=== PATIENT | male | born 1975 | race Caucasian/White ===

== ENCOUNTER 2020-01-14 17:51 | Emergency (ER) | payer SELFPAY ==
[~2020-01-14] VITALS: Ht 172.7 cm; Wt 108.9 kg
[2020-01-14 18:03] VITALS: BP 144/95
--- NOTE | 2020-01-14 18:15 | NUR ---
frequently redirection required for patient to maintain in his room---brought few cups of water md spoke with p[t----pt ambulated out of the ER with steady gait.
--- NOTE | 2020-01-14 18:16 | NUR ---
and charge notified
== END 2020-01-14 18:15 | disposition left against medical advice (07) ==
LOC: MED 17:51
DX: F15.10 Other stimulant abuse, uncomplicated (principal); R44.2 Other hallucinations
CPT/HCPCS: 99283

== ENCOUNTER 2022-07-13 20:35 | Inpatient (IN) | payer MEDICAID ==
[~2022-07-13] VITALS: Ht 170.2 cm; Wt 71.7 kg
[2022-07-13 21:18] VITALS: BP 126/75
--- NOTE | 2022-07-13 21:25 | NUR ---
Provided, blankets, 2 sanwiches and orange juice as request.
--- NOTE | 2022-07-14 01:00 | NUR ---
Dr. Farias examining patient.
--- NOTE | 2022-07-14 01:51 | NUR ---
PT TAKEN TO BED 5
--- NOTE | 2022-07-14 01:58 | NUR ---
PT IN ROOM 5 IN GOWN AND ALL PERSONAL BELONGINGS BAGGED AND TAGGED
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
[2022-07-14 03:10] LABS: BARBITURATE, URINE NEGATIVE ng/ml (NEG <=200); BENZODIAZEPINE, URINE NEGATIVE ng/mL (NEG <=200); CANNABINOID, URINE POSITIVE ng/mL (NEG <=50); COCAINE, URINE NEGATIVE ng/mL (NEG <=300); OPIATE, URINE NEGATIVE ng/mL (NEG <=2000); PHENCYCLIDINE SCREEN,URINE NEGATIVE ng/mL (NEG <=25)
--- NOTE | 2022-07-14 04:10 | NUR ---
[facility] BLISS CONTACTED FOR [address] AVERY
--- NOTE | 2022-07-14 04:18 | NUR ---
PT continues to take off BP cuff and pulse ox cables and refused blood pressure and SpO2 monitoring.
--- NOTE | 2022-07-14 04:21 | NUR ---
[place] [employer] AT BEDSIDE
--- NOTE | 2022-07-14 04:28 | NUR ---
FLORENCIA BLISS HERE PT IS ON A 5150 HOLD. PT WAS INFORMED ON LABS AND NO OPTION OF REFUSAL. Q15 SI CHECKS HAVE STARTED. ALL ITEMS FROM ROOM REMOVED FOR SAFETY. PT IS IN VIEW. SIDE RAILS UP X2. BED AT LOWEST LEVEL
[2022-07-14] MEDS ORDERED: LORazepam 1 MG TAB PO ONE (04:45)
--- NOTE | 2022-07-14 05:02 | NUR ---
COVID AND NOVEL SWABS COLLECTED AND SENT TO LAB
--- NOTE | 2022-07-14 06:11 | NUR ---
PENDING TO MED CLEAR PATIENT FOR TELEPSYCH.
--- NOTE | 2022-07-14 07:17 | NUR ---
Report received from ANNEMARIE Brandon for transfer of care.
--- NOTE | 2022-07-14 08:12 | NUR ---
Lab at bedside, blood work drawn.
--- NOTE | 2022-07-14 08:12 | NUR ---
Patient was offered his breakfast tray.
[2022-07-14 08:32] LABS: BASOPHILS % (AUTO) 0.9 % (0.0-2.0); EOSINOPHILS # (AUTO) 0.1 K/uL (0-0.4); EOSINOPHILS % (AUTO) 2.6 % (0.0-4.0); HEMATOCRIT 43.4 % (36-52); HEMOGLOBIN 14.5 g/dL (12.0-18.0); LYMPHOCYTES # (AUTO) 1.3 K/uL (2.0-11.5); LYMPHOCYTES % (AUTO) 27.9 % (20.5-51.1); MEAN CORPUSCULAR HEMOGLOBIN 32 pg (27-31); MEAN CORPUSCULAR HGB CONC 34 g/dL (33-37); MEAN CORPUSCULAR VOLUME 96.3 fL (80-94); MONOCYTES # (AUTO) 0.5 K/uL (0.8-1.0); MONOCYTES % (AUTO) 10.3 % (1.7-9.3); NEUTROPHILS # (AUTO) 2.7 K/uL (1.8-7.7); NEUTROPHILS % (AUTO) 58.3 % (42.2-75.2); PLATELET COUNT (AUTO) 264 K/uL (140-450); RED CELL DISTRIBUTION WIDTH 12.5 % (11.6-13.7); WHITE BLOOD COUNT (AUTO) 4.6 K/uL (4.8-10.8)
[2022-07-14 08:34] LABS: ANION GAP 0.1 (8-16); CARBON DIOXIDE 28.8 mmol/L (21-32); CREATININE 0.8 mg/dL (0.6-1.3); POTASSIUM 3.9 mmol/L (3.5-5.1)
--- NOTE | 2022-07-14 08:51 | NUR ---
Dr. Andino evaluating patient at bedside.
[2022-07-14] MEDS ORDERED: NACL 0.9% 1,000 ML IV ONE (08:55)
--- NOTE | 2022-07-14 09:20 | NUR ---
Patient refused IV.
--- NOTE | 2022-07-14 10:19 | NUR ---
Patient refused IV. Dr. Andino made aware.
--- NOTE | 2022-07-14 10:35 | NUR ---
Patient was offered crackers and juice.
--- NOTE | 2022-07-14 11:23 | NUR ---
Spoke to Dr. Navarro, will call back in 1 hour to evaluate patient.
--- NOTE | 2022-07-14 12:02 | NUR ---
Patient was offered his lunch tray. Patient is sitting up on bed, eating lunch.
--- NOTE | 2022-07-14 12:28 | NUR ---
Dr. Navarro, psychiatrist, evaluating patient at bedside.
--- NOTE | 2022-07-14 14:31 | NUR ---
PAGED DR DUMONT TO NOTIFY HER THAT PT IS BEING ADMITTED TO THE FLOOR WITHOUT AN IV. DR TABARES.
[2022-07-14] MEDS ORDERED: LORazepam 2 MG/ML VIAL IVP PRN (14:35)
[2022-07-14] MEDS ORDERED: POTASSIUM CHLORIDE 10 MEQ TABER PO PRN (14:35)
[2022-07-14] MEDS ORDERED: ONDANSETRON 4 MG/2 ML VIAL IVP PRN (14:35)
[2022-07-14] MEDS ORDERED: DOCUSATE SODIUM 100 MG GELCAP PO PRN (14:35)
[2022-07-14] MEDS ORDERED: ACETAMINOPHEN 325 MG TAB PO PRN (14:35)
[2022-07-14] MEDS ORDERED: MORPHINE SULFATE 2 MG/ML SYR IVP PRN (14:35)
[2022-07-14] MEDS ORDERED: ZOLPIDEM 10 MG TAB PO PRN (14:35)
[2022-07-14] MEDS ORDERED: MAG SULF 2000 MG/WATER PREMIX 50 ML IV PRN (14:35)
--- NOTE | 2022-07-14 14:39 | NUR ---
Patient will be admitted to care of Dr. Sampson. Admited to Telemetry. Will go to room 109B. Belongings list completed. Report to DIONICIO Holcomb.
--- NOTE | 2022-07-14 14:40 | NUR ---
The patient's care was reviewed and supervised by Monique Redd RN.
[2022-07-14 15:42] VITALS: BP 115/71
--- NOTE | 2022-07-14 19:20 | NUR ---
RECEIVED PT FROM AM NURSE FOR CONTINUITY OF CARE.PT IS STABLE
[2022-07-14 20:00] VITALS: BP 119/68
[2022-07-14] MEDS: OLANZapine 5 MG TAB PO SCH (21:11)
--- NOTE | 2022-07-15 | NUR ---
PATIENT ASLEEP,NO DISTRESS NOTED
--- NOTE | 2022-07-15 04:00 | NUR ---
PATIENT STILL ASLEEP, NO COMPLAIN OF PAIN, NO AGITATION NOTED
--- NOTE | 2022-07-15 06:00 | NUR ---
PT REFUSED HEART MONITOR ON, SAID HE WANTS IT LATER
--- NOTE | 2022-07-15 06:30 | NUR ---
PATIENT REFUSED BLOOD DRAW
--- NOTE | 2022-07-15 07:20 | NUR ---
EBDORSED PT TO AM NURSE IN STABLE CONDITION
[2022-07-15] MEDS: OLANZapine 5 MG TAB PO SCH ×2 (09:00→20:53)
--- NOTE | 2022-07-15 09:00 | NUR ---
patient refusing vital signs, blood draws, and tele monitoring. MD aware. pt. had a shower tolerated well. pt. still verbalizing suicidal thoughts. 1:1 sitter at bedside at all times. safety measures provided. will continue to monitor patient.
--- NOTE | 2022-07-15 10:15 | NUR ---
PATIENT HAS BEEN SCREENED AND CATEGORIZED LOW NUTRITION RISK. PATIENT WILL BE SEEN WITHIN 7 DAYS OF ADMISSION. 07/21/[address] REVIEWED BY CASH GUSTA[address]ON RD
--- NOTE | 2022-07-15 11:00 | NUR ---
DISCHARGE PLANNING SW ATTEMPTED TO MET WITH PATIENT AT BEDSIDE TO DISCUSS AND GATHER PATIENT'S COLLATERAL INFORMATION. PATIENT WAS ASLEEP, HOWEVER PATIENT ATTEMPTED TO WAKE HIM UP TO COMPLETE ASSESSMENT. PATIENT WAS NOT COOPERATIVE AND UNWILLING TO PROVIDE ANY INFORMATION STATED " LEAVE ME ALONE I DO NOT WANT TO SPEAK TO YOU NOW OR BRADEN; I'M SLEEPING. SW ATTEMPTED TO EXPLAINED TO PATIENT THAT HE WAS ON A 5150 HOLD AND THAT IN ORDER TO PROVIDE SERVICES AND RESOURCES ACCORDANTLY A MEETING WITH THESE FISH AGENT WAS NECESSARY. PATIENT DID COOPERATE AND TURN HIM SELF AROUND COVERING HIS HEAD WITH BLANKET AND REFUSED TO SPEAK OR ANSWER ANY QUESTION. SW ENDED THE MEETING AND WILL FOLLOW UP WITH PATIENT NEEDED.
--- NOTE | 2022-07-15 19:20 | NUR ---
RECEIVED PT FROM AM NURSE FOR CONTINUITY OF CARE. PT IS STABLE
--- NOTE | 2022-07-16 | NUR ---
PATIENT ASLEEP,NO DISTRESS NOTED
--- NOTE | 2022-07-16 06:00 | NUR ---
PATIENT IS AWAKE,NO AGITATION OR CHANGE IN BEHAVIOR NOTED
--- NOTE | 2022-07-16 06:47 | NUR ---
PATIENT REFUSED BLOOD DRAW
[2022-07-16] MEDS: OLANZapine 5 MG TAB PO SCH ×2 (09:00→20:43)
[2022-07-16] MEDS ORDERED: LORazepam 2 MG/ML VIAL IM/IVP PRN (13:20)
--- NOTE | 2022-07-16 14:10 | NUR ---
PT.VERY AGITATED, YELLING AND THREATENING AT STAFF. CODE MEDEL ACTIVATED. ATIVAN GIVEN IM ORDERED. TOLERATED WELL. WILL MONITOR.
--- NOTE | 2022-07-16 19:05 | NUR ---
received patient sitting on the bed, requesting for milk and crackers, given food. denies pain at this time. no acute respiratory distress noted. no iv access as endorsed. on hold, rn as sitter for safety. close monitoring being done.
--- NOTE | 2022-07-16 20:00 | NUR ---
PATIENT WITH EYES CLOSED BUT TURNING SIDE TO SIDE IN BED. REFUSED VITAL SIGNS TO BE TAKEN.
--- NOTE | 2022-07-16 22:00 | NUR ---
PATIENT PROVIDED JUICE PER REQUEST. Addendum: 07/16/22 at 2213 by Genesis Anderson RN OFFERED ZYPREXA WHICH WAS SCHEDULED, NOT GIVEN SINCE PT WAS ASLEEP. PT REFUSED MEDICATION AT THIS TIME.
--- NOTE | 2022-07-17 00:01 | NUR ---
PATIENT IS ASLEEP. BREATHING AND UNLABORED. CLOSE MONITORING.
--- NOTE | 2022-07-17 02:15 | NUR ---
PROVIDED CRACKERS AND MILK PER PATIENT'S REQUEST.
--- NOTE | 2022-07-17 04:01 | NUR ---
PATIENT IS ASLEEP. NO S/SX OF PAIN NOR DISCOMFORT. SAFETY PRECAUTIONS IN PLACE. SITTER FOR SAFETY.
--- NOTE | 2022-07-17 05:33 | NUR ---
PATIENT REFUSED BLOOD DRAW.
--- NOTE | 2022-07-17 06:31 | NUR ---
PATIENT ASLEEP. NO DISTRESS NOTED. ALL NEEDS ATTENDED TO. SAFETY PRECAUTIONS MAINTAINED DURING THE SHIFT.
--- NOTE | 2022-07-17 07:07 | NUR ---
ENDORSED CARE TO AM RN FOR CONTINUITY OF CARE. PT ASLEEP. IN STABLE CONDITION, NO DISTRESS.
--- NOTE | 2022-07-17 08:30 | NUR ---
SPOKE WITH THE PATIENT VIA [facility]. PATIENT VERBALIZED SUICIDAL IDEATION AND PLAN. MADE AWARE THAT 5[address] IS OF TODAY[address] PER DR. FLOOD HE WILL TALK TO DR. DOBBS REGARDING THE PATIENT AND WILL CALL BACK AND UPDATE PLAN OF CARE.
[2022-07-17] MEDS: OLANZapine 5 MG TAB PO SCH ×3 (08:56→21:00)
--- NOTE | 2022-07-17 19:30 | NUR ---
RECEIVED REPORT FROM DAY SHIFT NURSE DEQUAN FOR CONTINUITY OF CARE. PATIENT IS A&O X4. PATIENT IS ON ROOM AIR, BREATHING IS NORMAL WITH SYMMETRICAL RISE AND FALL OF CHEST. PATIENT IS CURRENTLY ON A 51/50 HOLD, AND I AM SITTING FOR PATIENT. PATIENT IS CURRENTLY LYING SUPINE IN BED, Addendum: 07/17/22 at 1934 by Oscar Castillo RN LYING SUPINE IN BED, SLEEPING. BED IS IN LOWEST POSITION, WHEELS LOCKED, CALL LIGHT IN PLACE. WILL CONTINUE TO SIT AND OBSERVE PATIENT.
--- NOTE | 2022-07-17 20:30 | NUR ---
OBTAINED PATIENT'S MEDICATIONS AND VITAL MACHINE TO GET PATIENT'S VITALS. DIONICIO METZGER SAT, WATCHING PATIENT DURING THIS TIME. DOMENICA REPORTED THAT PATIENT CONTINUED TO SLEEP WITHOUT ANY CHANGES IN BEHAVIOR. WILL CONTINUE TO OBSERVE PATIENT.
[2022-07-17] MEDS: traZODone 50 MG TAB PO SCH (21:00)
--- NOTE | 2022-07-17 21:00 | NUR ---
ATTEMPTED TO OBTAIN VITALS; PATIENT REFUSED, AND DID NOT WANT TO BE TOUCHED. PATIENT DID NOT WANT TO BE LISTENED TO WITH STETHOSCOPE. ATTEMPTED TO ADMINISTER 2100 MEDICATIONS TO PATIENT. PATIENT POLITELY STATED, "I DON'T WANT TO TAKE THOSE"; AND PATIENT ROLLED OVER TO GO BACK TO SLEEP. AT 2044; PATIENT REQUESTED SOME MILK AND DARREN CRACKERS. MILD AND DARREN CRACKERS WERE GIVEN TO PATIENT. PATIENT THANKED ME AND WENT BACK TO SLEEP, LEAVING MILK AND CRACKERS ON BEDSIDE TABLE. BREATHING WAS NORMAL WITH SYMMETRICAL RISE AND FALL OF CHEST. WILL CONTINUE TO OBSERVE PATIENT.
--- NOTE | 2022-07-17 22:20 | NUR ---
NURSE SMITA IS TAKING OVER SITTING WHILE I ASSIST NURSE DOMENICA. PATIENT IS LYING SUPINE, TRYING TO SLEEP.
--- NOTE | 2022-07-17 22:40 | NUR ---
PATIENT BEGAN YELLING TO CALL SECURITY STATING, "CALL SECURITY; I DON'T TRUST ANY OF YOU". SECURITY CAME BY AND LOOKED IN ON PATIENT. SECURITY STATED TO CALL THEM IF HE BECOMES COMBATIVE. PATIENT HAS SETTLED DOWN; AND IS LYING DOWN SUPINE, COVERED UP, TRYING TO GO BACK TO SLEEP. WILL CONTINUE TO OBSERVE PATIENT. Addendum: 07/17/22 at 2314 by Oscar Castillo RN RETURNED TO RELIEVE NURSE ORDOÑEZ FROM SITTING; NURSE ORDOÑEZ INFORMED ME THAT... (SEE ABOVE NOTATION).
--- NOTE | 2022-07-18 01:00 | NUR ---
PATIENT IS SLEEPING, LYING SUPINE, FULLY COVERED UP. PATIENT HAS TOSSED AND TURNED FREQUENTLY. PATIENT'S BREATHING IS NORMAL WITH SYMMETRICAL RISE AND FALL OF CHEST; PATIENT HAS NO IV. WILL CONTINUE TO SIT AND OBSERVE PATIENT.
--- NOTE | 2022-07-18 02:50 | NUR ---
PATIENT IS SLEEPING LYING ON HIS BACK. PATIENT HAS TOSSED AND TURNED PERIODICALLY, BUT HAS MOSTLY STAYED ASLEEP. PATIENT IS FULLY COVERED UP. BREATHING IS NORMAL WITH SYMMETRICAL RISE AND FALL OF CHEST. WILL CONTINUE TO OBSERVE PATIENT.
--- NOTE | 2022-07-18 05:09 | NUR ---
PATIENT WOKE UP AND WENT INTO BATHROOM AND SHUT DOOR. I ENTERED ROOM AND EXPLAINED TO PATIENT HE NEEDS TO LEAVE THE DOOR OPEN. PATIENT BECAME COMBATIVE, GRABBED THE DOOR AND SLAMMED IT SHUT; USING FOUL LANGUAGE, AND STATING THREATS. EXPLAINED TO THE PATIENT I AM JUST DOING MY JOB TO ENSURE HIS SAFETY. PATIENT THEN CAME OUT OF THE BATHROOM CONTINUING TO CURSE AND MAKE THREATS WHILE GETTING BACK IN BED AND LYING DOWN. PATIENT APPEARED TO BE UNHARMED. WILL CONTINUE TO OBSERVE PATIENT.
--- NOTE | 2022-07-18 05:36 | NUR ---
PATIENT REFUSED LAB WORK. PATIENT CONTINUES TO MAKE THREATS WHILE GOING BACK AND FORTH FROM SITTING UP IN BED AND LYING DOWN. WILL CONTINUE TO OBSERVE PATIENT.
--- NOTE | 2022-07-18 05:49 | NUR ---
PATIENT REQUESTED SECURITY BE CALLED SO HE CAN TALK TO THEM. SECURITY CAME DOWN AND SPOKE WITH PATIENT. SECURITY THEN ASKED ME WHAT THE ISSUE IS WITH THE BATHROOM; IT WAS EXPLAINED TO SECURITY THE DOOR NEEDS TO BE LEFT OPEN FOR THE PATIENT'S SAFETY OR HE NEEDS TO BE ACCOMPANIED BY SOMEONE. SAID OKAY. SPOKE WITH FEATHER CUTTING MACHINE FEEDER AND THEN INFORMED ME TO CALL SECURITY IF HE GOES INTO BATHROOM AGAIN SO THEY CAN TALK TO HIM. WILL CONTINUE TO OBSERVE PATIENT.
--- NOTE | 2022-07-18 06:45 | NUR ---
PATIENT IS SLEEPING, WAKING UP EVERY FEW MINUTES. BREATHING IS NORMAL WITH SYMMETRICAL RISE AND FALL OF CHEST. WILL ENDORSE CARE TO DAY SHIFT NURSE.
--- NOTE | 2022-07-18 07:25 | NUR ---
ENDORSED TO ADZE FOR CONTINUITY OF CARE. PATIENT IS STABLE.
--- NOTE | 2022-07-18 08:00 | NUR ---
RECEIVED PT. LYING IN BED, ASLEEP. NOT IN ANY FORM OF DISTRESS. REFUSING VITAL SIGNS TAKEN. REFUSING BLOOD DRAWS AND ASSESSMENT. RISKS AND BENEFITS EXPLAINED STILL CONTINUE TO REFUSE. 1:1 SITTER AT ALL TIMES. SAFETY MEASURES MAINTAINED.
[2022-07-18] MEDS: OLANZapine 5 MG TAB PO SCH ×2 (09:00→21:00)
--- NOTE | 2022-07-18 15:20 | NUR ---
PATIENT STARTED YELLING AT STAFF. VERBALLY AGGRESSIVE. SECURITY WAS CALLED. FLORENCIA BLISS WAS CALLED TO REINSTATE [id number].
--- NOTE | 2022-07-18 16:00 | NUR ---
PT.JUST LEFT THE ROOM AND WENT STRAIGHT TO THE SHOWER ROOM. PATIENT STATES " I AM GOING TO TAKE A SHOWER NO ONE CAN STOP ME IT IS TOO HOT HERE" PATIENT WAS TOLD TO GO BACK TO HIS ROOM AND REFUSED. SECURITY WAS CALLED. SAFETY MEASURES MAINTAINED.
--- NOTE | 2022-07-18 16:09 | NUR ---
PATIENT BACK IN BED. CALM AT THIS TIME.
--- NOTE | 2022-07-18 17:10 | NUR ---
Aroldo BLISS was here and spoke with the patient and reinstated 5150 hold.
--- NOTE | 2022-07-18 19:05 | NUR ---
RECEIVED PT FROM DAY SHIFT NURSE BRYON. PT IN BED, AWAKE, EYES CLOSED. NO DISTRESS NOTED. BREATHING EVEN AND UNLABORED ON RA. NO IV LINE. MD AWARE. WITH 1:1 SITTER. SAFETY PRECAUTIONS IN PLACE.
--- NOTE | 2022-07-18 20:13 | NUR ---
PT REFUSED V/S AND SCHEDULED MEDS. RISKS AND BENEFITS EXPLAINED BUT STILL REFUSED.
--- NOTE | 2022-07-18 20:49 | NUR ---
5Patient's Plan of Care was discussed and reviewed with STORE CLERK CHECKER: SHERIE GALVIN
[2022-07-18] MEDS: traZODone 50 MG TAB PO SCH (21:00)
--- NOTE | 2022-07-19 00:36 | NUR ---
PT SLEEPING. BREATHING EVEN AND UNLABORED. NO SIGNS OF DISTRESS NOTED. 1:[address]
--- NOTE | 2022-07-19 03:02 | NUR ---
PT REQUESTED FOR CRACKERS, JUICE AND PUDDING. PT ATE SNACKS, CALM AND QUIET, WENT BACK TO SLEEP AFTER EATING.
--- NOTE | 2022-07-19 06:00 | NUR ---
PT REFUSED BLOOD DRAW. RISKS AND BENEFITS EXPLAINED. PT STILL REFUSED. WILL ENDORSE TO DAY SHIFT NURSE.
--- NOTE | 2022-07-19 06:37 | NUR ---
PT SLEEPING. RR EVEN AND UNLABORED WITH EQUAL CHEST RISE. NO SIGNS OF PAIN NOTED. 1:1 SITTER AT ALL TIMES. SAFETY MAINTAINED THROUGHOUT SHIFT.
--- NOTE | 2022-07-19 07:10 | NUR ---
ENDORSED PT TO DAY SHIFT NURSE FOR CONTINUITY OF CARE. ALL NEEDS MET THROUGHOUT SHIFT. PT IS STABLE.
[2022-07-19] MEDS: OLANZapine 5 MG TAB PO SCH ×2 (09:00→21:00)
--- NOTE | 2022-07-19 16:17 | NUR ---
SW ATTEMPTED TO MEET WITH PT HOWEVER, PT IN SHOWER. PACKET FAXED OVER TO [facility] [phone]. Addendum: 07/19/22 at 1621 by aKthi A[place] PACKET FAXED TO [phone] Addendum: 07/20/22 at 0805 by Kathi Sellers SS ATTEMPTED TO FOLLOW UP WITH [facility] HOWEVER, PHONE CONTINUES TO RING. PACKET SENT TO ADDITIONAL FACILITIES; [facility], [place], [facility], [facility], [facility] Addendum: 07/20/22 at 1031 by Kathi A[place] SPOKE WITH [employer] [facility] WHO IS REQUESTING UPDATED COVID-19 TEST. KELSI ENDORSED TO CHARGE NURSE, WILL FAX OVER COVID-19 RESULTS ONCE RECEIVED. Addendum: 07/20/22 at 1152 by Kathi AUSTIN UPDATED COVID19 TEST FAXED [phone] OVER TO [employer] [facility] REQUESTED. ADDITIONAL REFERRAL WAS SENT TO [facility] TO FOLLOW Addendum: 07/20/22 at 1204 by Kathi [place] OUTREACHED TO [facility] WHO REPORTS THAT PATIENT IS ACCEPTED TO FACILITY. FACILITY CURRENTLY WORKING ON DC. BLAIR OR M[facility]ENO TO RETURN PHONE CALL AND PROVIDE BED NUMBER AND ACCEPTING DRAllen Addendum: 07/20/22 at 1519 by Kathi [place] FOLLOWED UP WITH MORENO AT [facility] [phone] WHO CONFIRMS PATIENT HAS BEEN ACCEPTED, HOWEVER, THEY ARE STILL WAITING ON BED. PROVIDED MORENO WITH CHARGE NURSE AND PT NURSE PHONE NUMBER ONCE BED HAS OPENED. Addendum: 07/20/22 at 1532 by Kathi [place] SPOKE WITH [facility] WHO REPORTS [facility] RM 119A REPORT FOR NURSE TO NURSE IS [phone]. [facility] REQUESTING FOR NURSER TO CALL AFTER 6PM, ACCEPTING DR. BERRY. Addendum: 07/20/22 at 1553 by Kathi Sellers SS SPOKE WITH ARUNA AT [facility], TRANSPORTATION ARRANGED FOR P/U @ [id number].
[2022-07-19 16:31] LABS: BASOPHILS # (AUTO) 0.1 K/uL (0.00-0.22); BASOPHILS % (AUTO) 1.3 % (0.0-2.0); EOSINOPHILS # (AUTO) 0.1 K/uL (0-0.4); EOSINOPHILS % (AUTO) 2.1 % (0.0-4.0); HEMATOCRIT 46.3 % (36-52); HEMOGLOBIN 15.8 g/dL (12.0-18.0); LYMPHOCYTES # (AUTO) 1.7 K/uL (2.0-11.5); LYMPHOCYTES % (AUTO) 26.8 % (20.5-51.1); MEAN CORPUSCULAR HEMOGLOBIN 33 pg (27-31); MEAN CORPUSCULAR HGB CONC 34 g/dL (33-37); MEAN CORPUSCULAR VOLUME 95.9 fL (80-94); MONOCYTES # (AUTO) 0.5 K/uL (0.8-1.0); MONOCYTES % (AUTO) 7.4 % (1.7-9.3); NEUTROPHILS % (AUTO) 62.4 % (42.2-75.2); PLATELET COUNT (AUTO) 284 K/uL (140-450); RED BLOOD CELL COUNT(AUTO) 4.83 MIL/uL (4.20-6.10); RED CELL DISTRIBUTION WIDTH 12.3 % (11.6-13.7); WHITE BLOOD COUNT (AUTO) 6.3 K/uL (4.8-10.8)
[2022-07-19 17:05] LABS: ANION GAP 11.9 (8-16); CREATININE 0.8 mg/dL (0.6-1.3); POTASSIUM 3.9 mmol/L (3.5-5.1)
--- NOTE | 2022-07-19 19:11 | NUR ---
RECEIVED PT FROM DAY SHIFT NURSE ADZE. PT IN BED, SLEEPING. RESPIRATIONS EVEN AND UNLABORED ON RA. NO DISTRESS NOTED. NO SIGNS OF PAIN. NO IV LINE. MD AWARE. WITH 1:1 SITTER. SAFETY PRECAUTIONS IN PLACE.
--- NOTE | 2022-07-19 20:00 | NUR ---
Patient's Plan of Care was discussed and reviewed with ANNEMARIE REHMAN.
[2022-07-19] MEDS: traZODone 50 MG TAB PO SCH (21:00)
--- NOTE | 2022-07-19 21:13 | NUR ---
PT REFUSED V/S AND SCHEDULED MEDS. RISKS AND BENEFITS DISCUSSED WITH THE PT BUT PT STILL REFUSED.
--- NOTE | 2022-07-20 00:26 | NUR ---
PT SLEEPING. RR EVEN AND UNLABORED WITH EQUAL CHEST RISE AND FALL. NO DISTRESS NOTED. 1:[address]
--- NOTE | 2022-07-20 03:46 | NUR ---
PT REFUSED V/S. PT ASKED FOR CRACKERS AND PUDDING, ATE SNACKS AND WENT BACK TO SLEEP.
--- NOTE | 2022-07-20 06:58 | NUR ---
PT SLEEPING. RR EVEN AND UNLABORED WITH EQUAL CHEST RISE. NO SIGNS OF PAIN NOTED. 1:1 SITTER AT ALL TIMES. SAFETY MAINTAINED THROUGHOUT SHIFT.
--- NOTE | 2022-07-20 07:11 | NUR ---
ENDORSED PT TO DAY SHIFT NURSE ADZE. ALL NEEDS MET THROUGHOUT SHIFT. PT IS STABLE.
[2022-07-20] MEDS: OLANZapine 5 MG TAB PO SCH ×2 (09:00→11:34)
[2022-07-20 17:45] VITALS: BP 114/73
--- NOTE | 2022-07-20 17:51 | NUR ---
PT.TRANSFERRED TO [facility]. TRANSPORTED VIA [facility]. PT.AGREEABLE OF TRANSFER. REPORT GIVEN TO TULIO GREENBERG. STABLE UPON TRANSFER.
== END 2022-07-20 17:52 | DRG 426 ==
LOC: MED 20:35 → MTU 07-14 13:20
PROVIDERS: ADMIT Family Medicine; ATTEND Family Medicine
DX: E87.1 Hypo-osmolality and hyponatremia (principal); G92.9 Unspecified toxic encephalopathy; R45.851 Suicidal ideations; F32.9 Major depressive disorder, single episode, unspecified; F20.9 Schizophrenia, unspecified; Z20.822 Contact with and (suspected) exposure to COVID-19; F15.10 Other stimulant abuse, uncomplicated; F12.10 Cannabis abuse, uncomplicated; Z59.00 Homelessness unspecified; Z79.899 Other long term (current) drug therapy
CPT/HCPCS: 36415; 80048; 80305; 85025; 87081; 87635-QW; 93005; C9803-CS; J2060

== ENCOUNTER 2022-07-26 22:10 | Emergency (ER) | payer MEDICAID ==
[~2022-07-26] VITALS: Ht 170.2 cm; Wt 77.1 kg
[2022-07-26 22:24] VITALS: BP 131/79
--- NOTE | 2022-07-26 22:28 | NUR ---
TO BED AMBULATORY
--- NOTE | 2022-07-26 22:50 | NUR ---
Dr. Tay examining patient.
--- NOTE | 2022-07-26 23:00 | NUR ---
FOOD GIVEN PER REQUEST
[2022-07-26 23:12] LABS: BASOPHILS % (AUTO) 0.4 % (0.0-2.0); EOSINOPHILS % (AUTO) 0.1 % (0.0-4.0); HEMATOCRIT 41.9 % (36-52); HEMOGLOBIN 14.4 g/dL (12.0-18.0); LYMPHOCYTES # (AUTO) 1.9 K/uL (2.0-11.5); LYMPHOCYTES % (AUTO) 18.4 % (20.5-51.1); MEAN CORPUSCULAR HEMOGLOBIN 32 pg (27-31); MEAN CORPUSCULAR HGB CONC 35 g/dL (33-37); MEAN CORPUSCULAR VOLUME 94.1 fL (80-94); MONOCYTES # (AUTO) 0.8 K/uL (0.8-1.0); MONOCYTES % (AUTO) 7.9 % (1.7-9.3); NEUTROPHILS # (AUTO) 7.6 K/uL (1.8-7.7); NEUTROPHILS % (AUTO) 73.2 % (42.2-75.2); PLATELET COUNT (AUTO) 325 K/uL (140-450); RED BLOOD CELL COUNT(AUTO) 4.45 MIL/uL (4.20-6.10); RED CELL DISTRIBUTION WIDTH 12.2 % (11.6-13.7); WHITE BLOOD COUNT (AUTO) 10.4 K/uL (4.8-10.8)
[2022-07-26 23:37] LABS: ACETAMINOPHEN < 0.5 ug/ml (10-30); ALBUMIN 3.7 g/dL (3.4-5.0); ANION GAP 13.6 (8-16); ASPARTATE AMINOTRANSFERASE 23 U/L (15-37); CARBON DIOXIDE 30.4 mmol/L (21-32); CHLORIDE 100 mmol/L (98-107); CREATININE 0.9 mg/dL (0.6-1.3); GFR ARICAN-AMERICAN 115 mL/min (>90); GLUCOSE 102 mg/dL (74-106); SALICYLATE < 2.8 mg/dL (2.8-20.0); SODIUM SERUM 140 mmol/L (136-145); TOTAL BILIRUBIN 0.3 mg/dL (0.0-1.0); UREA NITROGEN, BLOOD 12 mg/dL (7-18)
[2022-07-26] MEDS ORDERED: diphenhydrAMINE 50 MG CAP PO ONE (23:50)
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
--- NOTE | 2022-07-27 01:11 | NUR ---
SWABS COLLECTED AND GIVEN TO LICHA
--- NOTE | 2022-07-27 01:22 | NUR ---
PT APPEARS TO BE RESTING WITH EQUAL RISE AND FALL OF CHEST WALL. OPENS TO SOUND. ALL NEEDS MET AT THIS TIME. BED LOCKED IN LOWEST POSITION, SIDE RAILS X2 FOR SAFETY.
--- NOTE | 2022-07-27 01:55 | NUR ---
PT STATES "I CHANGED MY MIND IM NOT SUICIDAL". ALEXIS MONZON MADE AWARE.
--- NOTE | 2022-07-27 02:09 | NUR ---
Dr. Tay re-examining patient.
[2022-07-27 02:51] VITALS: BP 132/75
--- NOTE | 2022-07-27 02:51 | NUR ---
PT LEFT WITHOUT PAPER WORK.
[2022-07-27 06:19] LABS: BARBITURATE, URINE NEGATIVE ng/ml (NEG <=200); BENZODIAZEPINE, URINE NEGATIVE ng/mL (NEG <=200); CANNABINOID, URINE NEGATIVE ng/mL (NEG <=50); COCAINE, URINE NEGATIVE ng/mL (NEG <=300); OPIATE, URINE NEGATIVE ng/mL (NEG <=2000); PHENCYCLIDINE SCREEN,URINE NEGATIVE ng/mL (NEG <=25)
== END 2022-07-27 02:51 | disposition home or self-care (01) ==
LOC: MED 22:10
DX: F41.8 Other specified anxiety disorders (principal); Z20.822 Contact with and (suspected) exposure to COVID-19; F15.10 Other stimulant abuse, uncomplicated
CPT/HCPCS: 36415; 80053; 80305; 85025; 87426; 87635; 99283; C9803; G0480; G0482; Q0163

== ENCOUNTER 2022-08-14 21:01 | Emergency (ER) | payer MEDICAID ==
[~2022-08-14] VITALS: Ht 170.2 cm; Wt 74.8 kg
[2022-08-14 21:05] VITALS: BP 142/78
--- NOTE | 2022-08-14 21:11 | NUR ---
PT OFFLOADED TO LOBBY.
--- NOTE | 2022-08-14 21:11 | NUR ---
47 YO M BIBA [place] [address] WITH C/C OF NOT FEELING WELL. PT STATES DRY MOUTH IS WHAT BOTHERS HIM MOST. DENIES PAIN. STATES HE USED METH TODAY ADND 4 BEERS. PT AMBULATED TO WITH A STEADY GAIT. PT OFFLOADED TO LOBBY. DENIES HX, RX AND ALLERGIES
[2022-08-14 23:45] VITALS: BP 142/78
== END 2022-08-14 23:24 | disposition home or self-care (01) ==
LOC: MED 21:01
DX: R68.2 Dry mouth, unspecified (principal); J02.9 Acute pharyngitis, unspecified; F15.90 Other stimulant use, unspecified, uncomplicated; F17.200 Nicotine dependence, unspecified, uncomplicated; Z71.6 Tobacco abuse counseling
CPT/HCPCS: 99283